=== PATIENT | female | born 1990 ===

== ENCOUNTER 2017-05-16 20:15 | Emergency (ER) | payer OTHER ==
[~2017-05-16] VITALS: Ht 154.9 cm; Wt 67.8 kg
[2017-05-16 20:35] VITALS: TEMP 37.1; Ht 154.9 cm; Wt 67.8 kg
--- NOTE | 2017-05-16 20:55 | EMERGENCY ROOM VISIT NOTE ---
ED Visit Note First contact with patient: 20:54 Chief Complaint: Right Thumb Laceration History of Present Illness: This patient is a 27-year-old female who presents to the Emergency Department by personal vehicle was for evaluation of their right thumb laceration. Patient sustained the laceration while washing dishes, states she sliced her thumb on a serrated knife. She is right-hand dominant. They report a moderate amount of bleeding initially. They deny any numbness or tingling into the distal extremity. They report no decreased range of motion of the affected digit. They have tried nothing for the pain . Patient rates throbbing current discomfort as a 6/10. Patient denies any other injuries. Patient's Tetanus status is currently up-to-date. Medications: No medications Allergies: No known allergies PMH: No significant past medical or surgical history. Up-to-date on immunizations. SHx: Lives at home. [employer] grad student. ROS: All pertinent positive and negative review of systems are appropriately documented in the History of Present Illness. Physical Exam: VITAL SIGNS - Vital signs and nursing notes were reviewed. GENERAL - Pleasant and cooperative, in no acute distress. Communicates well with provider and answers questions appropriately. SKIN - There is a 2 cm long laceration noted on the volar aspect of the distal right thumb. The edges gape apart with traction. No foreign bodies appreciated. Upon further examination there are no deep structures including vessel, tendon, or bony structures appreciated. There is mild active bleeding noted. MUSCULOSKELETAL - Laceration as described above. +5/5 strength appreciated of the affected digit. Full range of motion of the affected digit. NEUROLOGIC - No sensory defects of the right thumb utilizing light touch for evaluation. VASCULAR - Capillary refill was brisk. ED Course: Patient was seen and evaluated by myself. Costs and benefits of performing primary wound closure versus no repair were discussed with the patient who verbalizes understanding. Verbal consent was obtained prior to performing the procedure. 2 cc of 1% buffered lidocaine was used to perform a digital block of the right thumb. The wound was cleansed and prepped in the typical sterile fashion utilizing normal saline and Betadine. The wound was sterilely draped. Once proper anesthetization was established, finger tourniquet was applied. The wound was further examined and no additional findings. The wound was copiously irrigated with normal saline and Betadine. The wound was closed using 5 simple, 5-0 nylon sutures with the wound edges being well approximated. Patient tolerated the procedure well. Hemostasis was achieved. No complications were met. The wound was cleansed and dressed with a Bacitracin dressing. Patient educated on worrisome symptoms for return visit to the Emergency Department. Patient discharged to home in good condition. Current/Historical Medications Scheduled Bupropion (Wellbutrin Sr), 150 MG PO BID Escitalopram Oxalate (Lexapro), 20 MG PO DAILY Vital Signs Date Time Temp Pulse Resp B/P (MAP) Pulse Ox O2 Delivery O2 Flow Rate FiO2 05/16/17 23:07 49 20 99/65 98 05/16/17 20:35 37.1 81 20 136/79 95 Departure Information Impression Primary Impression: Laceration of right thumb Dispostion Home / Self-Care Condition GOOD Referrals [facility] (PCP) Patient Instructions ED Laceration Hand, My [facility] Additional Instructions You have received 5 sutures on your right thumb. These sutures are NOT dissolvable and WILL need to be removed by a health care provider in 7-10 days. You can return to the Emergency Department or contact your Primary Care Provider to have the sutures removed. Proper wound care is essential for adequate wound healing and infection prevention. You can shower and clean the wound with soap and water. Do not scour over the wound, pat dry with a towel. Do not submerse the wound (i.e. bathe or dish wash) until the sutures have been removed. You can use an antibiotic ointment with a dressing over the wound for the next 3-4 days. After this time you may leave the wound dry and open to the air. If crust develops over the wound you can use a Q-tip to apply a 1:1 peroxide:water solution to clean the wound. Look for signs of infection of the wound including: increased pain, swelling, foul discharge, streaking, or increased temperature. If any of these are noticed you should return to the Emergency Department for further assessment and treatment. As with any laceration you may have received nerve damage to the surrounding tissues. This damage may or may not be permanent. You should keep the area covered with sunscreen for the first 6 months to 1 year when at risk for exposure to help minimize scarring. You can also use scar reducing creams or Vitamin E oil to help minimize scarring. For pain control, you can use the following [id number]-mihskyn medicines (if >12 yo): - Regular strength (325mg/tab) Tylenol (acetaminophen) 2 tabs every 4-6 hours as needed. Do not exceed 10 tablets in a 24 hour period. Avoid taking more than 3000 mg of Tylenol per day. This includes any other sources of acetaminophen you may take on a regular basis. - Regular strength (200 mg/tab) Advil (ibuprofen) 1-2 tabs every 4-6 hours as needed. Do not exceed a dose of 2400 mg per day. Return to the emergency department if your symptoms worsen despite treatment course outlined above. Problem Qualifiers Primary Impression: Laceration of right thumb Encounter type: initial encounter Damage to nail status: without damage Foreign body presence: without foreign body Qualified Codes: S61.011A - Laceration without foreign body of right thumb without damage to nail, initial encounter
[2017-05-16] MEDS ORDERED: XYLOCAINE 1%/SOD BICARB 20 ML VIAL INFIL ONE (21:00)
[2017-05-16] MEDS ORDERED: BACITRACIN/POLYMYXIN B OINT 15 GM TUBE EXT STA (21:00)
[2017-05-16] MEDS ORDERED: BUPR-79 PO (21:06)
[2017-05-16] MEDS ORDERED: ESCI1TAB10 PO (21:06)
[2017-05-16 23:07] VITALS: BP 99/65; PULSE 49; O2SAT 98
== END 2017-05-16 22:59 | disposition home or self-care (01) ==
LOC: C.EDB 20:18 → C.EDD 22:59
DX: S61.011A Laceration without foreign body of right thumb without damage to nail, initial encounter (principal); W26.0XXA Contact with knife, initial encounter

== ENCOUNTER 2017-10-14 03:21 | Emergency (ER) | payer OTHER ==
[~2017-10-14] VITALS: Ht 157.5 cm; Wt 65.4 kg
[~2017-10-14 03:21] MED LIST: BUPR-79 PO; ESCI1TAB10 PO
[2017-10-14 03:29] VITALS: TEMP 36.6; Ht 157.5 cm; Wt 65.4 kg
[2017-10-14] MEDS ORDERED: PROPARACAINE HCL 0.5% OP SOLN 15 ML BTL ONE (03:39)
[2017-10-14] MEDS ORDERED: CITA10TA8 PO (04:14)
[2017-10-14] MEDS ORDERED: BACITRACIN OP OINT PER APPLICATION CHARGE OP ONE (04:15)
[2017-10-14] MEDS ORDERED: NORCO 5/325MG HOME PACK PO ONE (04:30)
[2017-10-14 04:40] VITALS: BP 147/89; PULSE 74; O2SAT 98
--- NOTE | 2017-10-14 05:17 | EMERGENCY ROOM VISIT NOTE ---
History First contact with patient: 03:33 Chief Complaint: EYE ASSESSMENT Stated Complaint: EYES BLOODSHOT History of Present Illness The patient is a 27 year old female who presents to the Emergency Room with complaints of pain and irritation of her bilateral eyes. The patient states that she went to bed with some minimal irritation of the eyes tonight, and woke up about 45 minutes ago with severe pain in both of her eyes. She noted that the eyes were bloodshot and now comes to the ER for evaluation. The patient does not wear contact lenses or have recent URI symptoms. She has had watering from the eyes but no drainage or discharge otherwise. She does not have visual changes with this. She did diet kitchen cook tonight with hot peppers, and may have had some residue on her hands that made its way into her eyes tonight. She rates her current discomfort in 03/09. Review of Systems More than 10 systems were reviewed and otherwise negative with the exception of history of present illness. Past Medical/Surgical History No chronic medical disease Family History No pertinent family history Social History Smoking Status: Never Smoker Housing Status: lives with family Current/Historical Medications Scheduled Citalopram Hydrobromide (Celexa), 10 MG PO DAILY Physical Exam Vital Signs Date Time Temp Pulse Resp B/P (MAP) Pulse Ox O2 Delivery O2 Flow Rate FiO2 10/14/17 04:40 74 16 147/89 98 Room Air 10/14/17 03:29 36.6 102 20 145/73 98 Room Air Right Eye Acuity: 20/40 Left Eye Acuity: 20/40 Physical Exam VITALS: Vitals are noted on the nurse's note and reviewed by myself. Vital signs stable. Acuity as above. GENERAL: Female who is covering her eyes with her hands EYES: Pupils equal round and reactive to light and accommodation. Conjunctivae injected without corneal abrasion on fluorescein exam. No foreign bodies noted. HEART: Regular rate and rhythm without murmurs gallops or rubs. LUNGS: Clear to auscultation bilaterally without wheezes, rales or rhonchi. No retractions or accessory muscle use. Medical Decision & Procedures Medications Administered Medications (Trade) Dose Ordered Sig/Seven Route Start Time Stop Time Status Last Admin Dose Admin Bacitracin (Bacitracin Oph Oint (Per Application Charge)) 1 appln NOW ONCE OP 10/14/17 04:15 10/14/17 04:16 DC 10/14/17 04:15 1 APPLN Acetaminophen/ Hydrocodone Bitart ([place] 5/325mg Home Pack) 1 homepack UD ONCE PO 10/14/17 04:30 10/14/17 04:31 DC 10/14/17 04:39 1 HOMEPACK ED Course Physical exam and history were performed. Nursing notes, EMR, and Medication List were personally reviewed. Patient appears to have irritation of her bilateral eyes that began about 45 minutes ago. On examination she does not have significant findings of globe injury. She does not have findings of the cornea itself. Her visual acuity is 20/[address] Alcaine in her eyes, and this did improve her discomfort. Her intraocular pressures are normal. The patient was placed under Jv lens irrigation system, as clinically I suspect her symptoms are related to cooking with hot peppers this evening and contaminating her eyes after touching them. The patient did feel improved after this. She will be given bacitracin ophthalmic ointment to use for the next few days as well as a home pack of Vicodin. Patient is to follow with her eye doctor or PCP in the next day or 2 for recheck. She was otherwise invited back to ER with any new, worsening, or concerning symptoms. The chart was completed utilizing [employer] Voice Recognition Software. Grammatical errors, random word insertions, pronoun errors, and incomplete sentences are an occasional consequence of this system due to software limitations, ambient noise, and hardware issues. Any formal questions or concerns about the content, text, or information contained within the body of this dictation should be directly addressed to the provider for clarification. . Medical Decision Differential diagnosis includes, but is not limited to: Corneal abrasion, laceration, ulceration, chemical irritation, glaucoma, infection, and others Impression Primary Impression: Irritation of both eyes Departure Information Dispostion Home / Self-Care Condition GOOD Forms HOME CARE DOCUMENTATION FORM, IMPORTANT VISIT INFORMATION Patient Instructions My [facility] Additional Instructions You were seen and evaluated today on an emergency basis only. This is not a substitute for, or an effort to provide, complete comprehensive medical care. It is not possible to recognize and treat all injuries or illnesses in a single emergency department visit. For this reason it is recommended that you followup with your primary care physician or eye doctor this week with any ongoing or persisting symptoms. Use bacitracin ophthalmic ointment. Apply a 1 inch ribbon of ointment to the lower eyelid of each eye 2-3 times daily. For baseline pain relief you may alternate ibuprofen and acetaminophen every 4 hours for pain control. Take 600 mg ibuprofen (Advil) and then 4 hours later take 1000 mg acetaminophen (Tylenol). Do not take more than 3000 mg acetaminophen in a single day. [place] (hydrocodone/acetaminophen) 5/325 mg (homepack) ONE tab every 6 hours as needed for worsening breakthrough pain. Do not drink or drive on [place]. This medication will likely make you tired. Do not take [place] and Tylenol at the same time as both contain acetaminophen. [place] may cause constipation. You may wish to take an [id number]-vuyoplr stool softener like Colace if this occurs. You are welcome to return to the emergency department anytime with new, worsening, or concerning symptoms.
== END 2017-10-14 04:40 | disposition home or self-care (01) ==
LOC: C.EDB 03:24
DX: H57.9 Unspecified disorder of eye and adnexa (principal)